=== PATIENT | female | born 1960 | race Caucasian/White ===

== ENCOUNTER → 2020-06-12 | Outpatient (CLI) | payer OTHER ==
--- NOTE | 2020-06-12 13:47 | RAD ---
Ultrasound the pelvis transabdominal and transvaginal. HISTORY: Postmenopausal bleeding Transabdominal ultrasound was performed. Bladder was not well-distended. Uterus is poorly seen transa bdominally. Ovaries were not identified transabdominally. Transvaginal imaging was performed for further evaluation. Uterus measured 10.3 x 5.8 x 5 cm. Endomet rium was mildly thickened at 7 mm towards the fundus. There are mildly echogenic leiomyomas in the an terior uterus measuring 2.2 x 2 cm and 2.1 x 1.7 cm there are nabothian cysts at the cervix. The ovaries were not identified transvaginally. There is no free fluid in the pelvis. IMPRESSION: 1. Mild endometrial thickening. 2. Uterine leiomyomas. 3. Nabothian cysts at the cervix. 4. Ovaries not identified either transabdominally or transvaginally. Electronically signed by: Luis Rai MD (06/12/2020 1:45 PM) [facility]
== END ==
LOC: US 12:42
PROVIDERS: ATTEND Family Medicine
DX: N95.0 Postmenopausal bleeding (principal)
CPT/HCPCS: 76830; 76856

== ENCOUNTER → 2021-03-02 | Outpatient (CLI) | payer OTHER ==
--- NOTE | 2021-03-02 16:28 | RAD ---
EXAM: Pelvic sonogram. HISTORY: Post menopausal bleeding. TECHNIQUE: Transabdominal and transvaginal sonographic imaging of the pelvis was performed. COMPARISON: None. FINDINGS: The uterus measures 10.0 x 6.0 x 5.5 cm. The endometrial stripe measures 1.1 cm in thicknes s. There is a calcified uterine fibroid measuring 2.6 cm. The ovaries are obscured. No adnexal mass o r cyst is seen. There is no pelvic free fluid. IMPRESSION: 1. Thickened endometrial stripe for the reported postmenopausal status of the patient. In the setting of postmenopausal bleeding, tissue sampling may be indicated for definitive diagnosis. 2. 2.6 cm calcified uterine fibroid. 3. Obscured ovaries. Electronically signed by: Toshia Vuong MD (03/02/2021 4:25 PM) [id number]
== END ==
LOC: US 15:39
PROVIDERS: ATTEND Obstetrics & Gynecology
DX: D25.9 Leiomyoma of uterus, unspecified (principal); N95.0 Postmenopausal bleeding
CPT/HCPCS: 76830; 76856